=== PATIENT | male | born 1940 | race Caucasian/White ===

== ENCOUNTER → 2017-06-17 | Outpatient (CLI) | payer MEDICARE ==
[2017-06-17 09:54] LABS: Blood Urea Nitrogen 12 mg/dL (9-20)
--- NOTE | 2017-06-17 12:29 | CT ---
EXAMINATION TYPE: CT abdomen pelvis w con DATE OF EXAM: 06/17/2017 COMPARISON: NONE INDICATION: Elevated PSA DLP: 972.9 mGycm, Automated exposure control for dose reduction was used. CONTRAST: 100 mL of Isovue 300. Study performed with Oral Contrast TECHNIQUE: Axial images were obtained from above the diaphragm to the pubic rami in the axial plane a t 5 mm thick sections. Reconstructed images are reviewed on the computer in the coronal plane. FINDINGS: Limited CT sections are obtained the lung bases. The lung bases are clear. Large hiatal hernia is p resent. This is partially accentuated by an elevated diaphragm. CT ABDOMEN: Liver: Normal Spleen: Normal Pancreas: Normal Adrenal glands: The adrenal glands are normal. Gallbladder: Surgically absent Kidneys: No masses are evident. No hydronephrosis is present. No cysts are present. Delayed images were obtained through the kidneys, which remain unremarkable. Aorta: Vascular calcification is within the aorta. Inferior vena cava: Normal. CT PELVIS: Large fecal bolus at the rectum. Correlate for fecal impaction. Loops of bowel within the abdomen and pelvis are normal. There are loops of bowel which are incom pletely distended or lack oral contrast limiting their evaluation. Appendix: Normal as visualized. Urinary bladder: Normal. Genitourinary structures: Radical prostatectomy appears to been performed. There may be some residual prostate tissue on the right impinging on the inferior portion of the urinary bladder. Osseous structures: No suspicious lytic or sclerotic lesions. Facet hypertrophy and degenerative valdes ges are present within the lower lumbar spine. IMPRESSIONS: 1. Correlate for fecal impaction at the rectum. 2. Suspicious metastatic disease is not identified.
--- NOTE | 2017-06-17 14:30 | NM ---
EXAMINATION TYPE: NM bone scan whole body DATE OF EXAM: 06/17/2017 COMPARISON: 06/17/2017 CT abdomen pelvis. HISTORY: Prostate carcinoma. Delayed whole-body scanning was performed following the injection of 23.7 mCi Tc 99m MDP. Images acq uired 3.5 hours post injection. FINDINGS: There is focal radiotracer uptake that is abnormal within the right humeral head. Correlation with ra diographs is recommended. Focal radiotracer uptake is also seen within the L3 left hemivertebra, L4 vertebral body, and L1 vert ebrae on the right. Correlating with CT of the same day no focal sclerosis suspicious sclerotic lesio n is seen to correlate. Findings may be degenerative as are extensive degenerative changes of the lum bar spine. Additional focus of abnormal uptake is seen within the left distal femoral metaphysis. Uptake within the left hand likely relates to injection site. Symmetric uptake of the axial and appendicular skeleton including the sacroiliac joints, knees, wrist s, and ankles relate to degenerative arthropathy. Physiologic radiotracer excretion is noted within t he urinary bladder. IMPRESSION: 1. Intense focal radiotracer uptake within the right humeral head. Correlation with right shoulder ra diographs are recommended as this could represent neoplasm/metastasis or fracture. 2. Punctate focus of radiotracer uptake within the left distal femoral metaphysis. Correlation with r adiographs is again recommended. 3. Abnormal radiotracer uptake within the L1, L3, and L4 vertebral bodies, however no suspicious lesi on is seen in the CT of the same date at these locations and findings could be degenerative. If there is further clinical concern MR could be performed to evaluate for bone marrow replacing lesion.
== END | disposition home or self-care (01) ==
LOC: RADCTMAIN 09:12
PROVIDERS: ATTEND Urology
DX: C61 Malignant neoplasm of prostate (principal); R93.7 Abnormal findings on diagnostic imaging of other parts of musculoskeletal system; Z88.2 Allergy status to sulfonamides
CPT/HCPCS: 82565; 84520; 74177; 36415; 78306; A9503; Q9967

== ENCOUNTER → 2017-06-25 | Outpatient (CLI) | payer MEDICARE ==
--- NOTE | 2017-06-25 13:25 | XR ---
EXAMINATION TYPE: XR shoulder complete RT DATE OF EXAM: 06/25/2017 CLINICAL HISTORY: pain TECHNIQUE: Three views of the right shoulder are obtained. COMPARISON: Bone scan dated 06/17/2017 revealing intense uptake about the right humeral head FINDINGS: There is erosive change of the right humeral head with severe degenerative narrowing glenoh umeral joint space. Bony remodeling of the glenoid with bony fragmentation identified. Degenerative c hanges of the AC joint. Healed right-sided rib fractures. IMPRESSION: 1. Severe degenerative change right humeral head without underlying lesion at this time. ICD 10 NO FRACTURE, INITIAL EVALUATION
--- NOTE | 2017-06-25 13:30 | XR ---
EXAMINATION TYPE: XR femur LT DATE OF EXAM: 06/25/2017 CLINICAL HISTORY: Prostate carcinoma TECHNIQUE: Two views of the left femur are obtained. COMPARISON: Bone scan 06/17/2017 FINDINGS: There is no acute fracture or dislocation seen of the femur moderate degenerative narrowi ng about the left knee with loose bodies identified. Suprapatellar joint effusion. Extensive spur for mation. No underlying lesion seen.. The overlying soft tissue appears unremarkable. IMPRESSION: There is no acute fracture or dislocation seen of the femur. No underlying lesion noted. ICD 10 NO FRACTURE, INITIAL EVALUATION
== END | disposition home or self-care (01) ==
LOC: RADXRMAIN 11:14
PROVIDERS: ATTEND Urology
DX: C61 Malignant neoplasm of prostate (principal)

== ENCOUNTER 2018-04-25 10:31 | Day surgery (SDC) | payer MEDICARE ==
[2018-04-20 11:21] VITALS: BMI 26.1
[~2018-04-25 10:31] MED LIST: ALPRAZolam 0.25 MG TAB PO PRN; ALPRAZolam 0.5 MG TAB PO PRN; ASPIRIN 325 MG TAB PO STA; ATORVASTATIN 80 MG TAB PO STA; NITROGLYCERIN SL TABS 0.4 MG TAB SUBLINGUAL PRN; SODIUM CHLORIDE 0.9% 1,000 ML in EMPTY BAG 1 BAG IV ONE
[2018-04-25 11:03] VITALS: TEMP 98.3
[2018-04-25 11:13] LABS: Glucose,Whole Blood 140 mg/dL (75-99)
[2018-04-25] MEDS ORDERED: fentaNYL (PF) 50 MCG/ML 2 ML AMP ONE (11:49)
[2018-04-25] MEDS: BENZOCAINE SPRAY 1 CAN MUCOUS MEM ONE ×2 (12:04→12:13)
[2018-04-25] MEDS ORDERED: fentaNYL (PF) 50 MCG/ML 2 ML AMP IVP ONE (12:13)
[2018-04-25] MEDS: MIDAZOLAM 2 MG/2 ML VIAL IVP ONE ×2 (12:13→12:17)
--- NOTE | 2018-04-25 12:47 | ECHOT ---
TRANSESOPHAGEAL ECHOCARDIOGRAM DATE OF SERVICE: 04/25/2018 PERFORMING PHYSICIAN: Fei Hawthorne MD, Taxicab Driver. PROCEDURE PERFORMED: Transesophageal echocardiogram. INDICATION: This is a 77-year-old gentleman who was diagnosed recently with severe aortic stenosis and a transesophageal echocardiogram is to confirm the severity of the aortic stenosis as well as to evaluate the mitral valve. COMPLICATION: None. LEVEL OF SEDATION: Moderate with sedation length of 15 minutes. PROCEDURE DESCRIPTION: After obtaining an informed consent, the patient was brought to the cardiac shop laborer. After obtaining an informed consent, explaining the procedure, benefits, risks, complications and alternatives, the patient was brought to the transesophageal echocardiogram suite. A pulse oximetry and heart rate monitors were attached to the patient prior to the procedure. The patient's throat was sprayed using lidocaine locally. Following that, the patient was turned into left lateral position. A bite guard was placed and the patient was then sedated with the above doses of Versed and fentanyl in divided doses. Following that, the transesophageal echocardiogram probe was advanced through the bite guard into the mid esophagus where 2-D echocardiogram images as well as color Doppler images of various cardiac structures were obtained. We evaluated the interatrial septum using 2-D echocardiogram, color Doppler, and contrast study. The procedure was completed. There were no complications. FINDINGS: The left ventricular dimension and systolic function appeared to be within normal limits. The ejection fraction appeared to be in the range of 60%. The right ventricle is of normal size and function with left atrium and right atrium are mildly dilated. The left atrial appendage appeared to be free from any thrombus. The interatrial septum appeared to be intact without any evidence of shunt. The aortic valve is trileaflet valve and seems to be heavily calcified valve and evidence of severe aortic stenosis with peak gradient of 97 and mean of 55 mmHg. The mitral valve seems to be also thickened and calcified with moderate MR. There was mild tricuspid regurgitation seen. CONCLUSION: 1. Normal left ventricular dimension and systolic function with ejection fraction of 55% to 60%. 2. Mild concentric left ventricular hypertrophy. 3. Trileaflet aortic valve with evidence of aortic sclerosis and severe stenosis. The aortic valve peak gradient was 97 and mean of 55 mmHg. 4. Thickened mitral valve leaflets with evidence of moderate mitral regurgitation. 5. Mild tricuspid regurgitation and mild pulmonic insufficiency. 6. The aortic root does not seem to be dilated. 7. No evidence of pericardial effusion. 8. Intact interatrial septum without any evidence of shunt. 9. Normal left atrial appendage without any evidence of thrombus. MMODL / IJN: [id number] /
[2018-04-25] MEDS ORDERED: LIDOCAINE 1% INJ 10MG/ML (20 ML MDV) SQ ONE (12:51)
[2018-04-25] MEDS: VERAPAMIL SYRINGE (5 MG/10 ML) INTRAARTER ONE ×2 (12:54→13:16)
[2018-04-25] MEDS ORDERED: MIDAZOLAM 2 MG/2 ML VIAL IV ONE (12:57)
[2018-04-25] MEDS ORDERED: IOPAMIDOL-370 150ML BTL INJ ONE (13:15)
[2018-04-25] MEDS ORDERED: RX INFO: IV CONTRAST WAS GIVEN 1 EACH MISC MISCELLANE PRN (13:17)
[2018-04-25] MEDS ORDERED: SODIUM CHLORIDE 0.9% 1,000 ML IV SCH (13:30)
--- NOTE | 2018-04-25 14:17 | CC ---
CARDIAC CATHETERIZATION REPORT DATE OF SERVICE: 04/25/2018 PERFORMING PHYSICIAN: Fei Hawthorne MD, Line Fixer. PROCEDURE PERFORMED: Selective right and left coronary angiogram. INDICATION: This is a pleasant 77-year-old gentleman who was diagnosed recently with aortic stenosis and a heart catheterization to evaluate for coronary artery disease. APPROACH: Right radial artery. COMPLICATION: None. LEVEL OF SEDATION: Moderate with sedation length of 26 minutes. PROCEDURE DESCRIPTION: After obtaining an informed consent, the patient was brought to the cardiac pit laborer. The right radial artery was cannulated using micropuncture technique, the micropuncture wire passed easily then I placed a 6-Lithuanian sheath in the right radial artery. After that I gave the patient 2 mg of verapamil IA and 10,000 units of heparin IV. Selective right and left coronary angiogram was performed. Selective right coronary angiogram was performed using JR4 catheter and left coronary angiogram was performed using JL4 catheters. Left heart catheterization was not performed. The procedure was completed without any complication. SELECTIVE CORONARY ANGIOGRAM: 1. The right coronary artery is a large caliber vessel and is a dominant vessel. The mid RCA has a lesion appeared to be in the range of 40% to 50%. 2. The left main is angiographically normal, but is a short left main. It bifurcates into the left circumflex and left anterior descending artery. 3. The left circumflex is a large caliber vessel. It is a nondominant vessel and seems to be angiographically normal. In the midportion, gives rise into OM 1, which appeared to be a large caliber vessel and angiographically normal. 4. The LAD, the proximal LAD appeared to be normal. The LAD in the midportion appeared to be normal and gives rise into a large diagonal branch which seems to be angiographically normal. The LAD distally appeared to be normal as well. 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 POSTPROCEDURE MANAGEMENT: 1. Medical treatment. 2. Proceed with aortic valve replacement. MMODL / IJN: [id number] /
[2018-04-25 15:40] VITALS: RESP 16
[2018-04-25 17:35] VITALS: BP 123/73; PULSE 85
== END 2018-04-25 17:53 | disposition home or self-care (01) ==
LOC: CATHCVL 10:31
PROVIDERS: ATTEND Internal Medicine Interventional Cardiology
DX: I25.10 Atherosclerotic heart disease of native coronary artery without angina pectoris (principal); I08.3 Combined rheumatic disorders of mitral, aortic and tricuspid valves; I10 Essential (primary) hypertension; E11.9 Type 2 diabetes mellitus without complications; Z79.84 Long term (current) use of oral hypoglycemic drugs; Z79.82 Long term (current) use of aspirin; Z79.899 Other long term (current) drug therapy; Z88.2 Allergy status to sulfonamides; I51.7 Cardiomegaly
CPT/HCPCS: 93312; 93320; 93325; 93454; C1769 ×2; C1894; J1644; J2250; J2001; J3010; Q9967

== ENCOUNTER 2019-12-13 15:13 | Emergency (ER) | payer MEDICARE ==
[2019-12-13 15:18] VITALS: TEMP 99.3
[2019-12-13] MEDS ORDERED: Acetaminophen-Codeine 300-30mg TAB PO STA (16:22)
--- NOTE | 2019-12-13 17:21 | CT ---
EXAMINATION TYPE: CT brain chevyine wo con DATE OF EXAM: 12/13/2019 COMPARISON: None available. HISTORY: Fall, blunt head trauma. Left facial injuries. CT DLP: 1121.9 mGycm Automated exposure control for dose reduction was used. TECHNIQUE: CT scan of the head and cervical spine are performed without contrast. FINDINGS: There is no acute intracranial hemorrhage, mass effect, or midline shift identified. The ventricles and sulci are within normal limits in size. The globes are intact and the visualized sin uses are clear. Cervical spine is visualized in its entirety from C1 through upper thoracic levels and demonstrates s atisfactory alignment without evidence of acute fracture or dislocation. Prevertebral soft tissue ap pears within normal limits. The C1-C2 articulation is unremarkable. There is moderate to severe cer vical spondylosis. There is mild anterior frontal scalp hematoma. IMPRESSION: 1. There is no acute fracture or dislocation evident in the cervical spine. 2. No acute intracranial hemorrhage, mass effect, or midline shift is seen. 3. Mild frontal scalp hematoma.
--- NOTE | 2019-12-13 17:25 | CT ---
EXAMINATION TYPE: CT facial bones wo con DATE OF EXAM: 12/13/2019 COMPARISON: None available. HISTORY: Fall yesterday. Left facial injuries. Automated exposure control for dose reduction was used. TECHNIQUE: CT scan of the facial bones is performed without contrast, axial images are obtained, meg nal reformatted images are also reviewed. FINDINGS: There is no acute fracture or dislocation of the mediastinal structures. The maxilla, tyrell ble and zygomatic arches are intact. There is mild anterior facial soft tissue edema. The paranasal sinuses are adequately aerated. IMPRESSION: No acute fracture of the facial bones.
--- NOTE | 2019-12-13 17:28 | XR ---
EXAMINATION TYPE: XR pelvis AP view DATE OF EXAM: 12/13/2019 CLINICAL HISTORY: Pain status post fall. TECHNIQUE: A single AP view of the pelvis is obtained. COMPARISON: None. FINDINGS: There is no acute fracture/dislocation evident in the pelvis. The hip and sacroiliac join ts appear symmetric with mild osteoarthritis. Surgical clips overlying the pelvis are seen. IMPRESSION: There is no acute fracture or dislocation in the pelvis.
--- NOTE | 2019-12-13 17:54 | CT ---
EXAMINATION TYPE: CT knee LT wo con DATE OF EXAM: 12/13/2019 COMPARISON: None available. HISTORY: Fall yesterday. Left knee pain and swelling. CT DLP: 255.[address] images of the left knee was performed. Coronal, sagittal and 3-D reformats were generated and reviewed. Automated exposure control for dose reduction was used. FINDINGS: There is a mildly displaced vertical fracture of the patella at the lateral aspect. No evidence of di slocation. There is a large hemarthrosis with large suprapatellar joint body. There is soft tissue ed anny about the fracture site. There is moderate to severe tricompartmental osteoarthritis. There is moderate chondrocalcinosis of t he knee, which can be seen with CPPD arthropathy. There is a 2.2 x 2.2 cm cystic structure in the pop liteal fossa, most consistent with a Winston's cyst. IMPRESSION: PATELLAR FRACTURE WITH LARGE HEMARTHROSIS AND JOINT BODIES.
[2019-12-13] MEDS ORDERED: MORPHINE SULFATE 4 MG/ML SYRINGE IM STA (18:24)
--- NOTE | 2019-12-13 18:39 | ED ---
Fall HPI - General Chief Complaint: Fall Stated Complaint: fall Time Seen by Provider: 12/13/19 15:15 Source: patient, family Mode of arrival: wheelchair - History of Present Illness Initial Comments: 79-year-old male who presents to the emergency department after he sustained a fall. Patient reports that the fall happened greater than 24 hours ago. He was attempting to go to the post office. Attempted to step on a curb when he missed the curb and fell forward. Patient hit his left side of his face. Also reports to hitting his bilateral knees. Patient did not want to be evaluated yesterday. He continued to have persistent pain in his left knee that was not relieved by Tylenol and therefore he was brought into the emergency room for evaluation. Patient denies losing consciousness. Does take Plavix daily. He denies any headaches or visual changes. No neck pain. Denies any chest pain or trouble breathing. Does admit to mild pain in his left hip. Has been unable to ambulate on the left lower extremity. - Related Data Home Medications Medication Instructions Recorded Confirmed Aspirin 81 mg PO HS 04/20/18 12/14/19 Terazosin [Hytrin] 2 mg PO BID 04/20/18 12/14/19 hydrALAZINE HCL [Apresoline] 50 mg PO Q8H 04/20/18 12/14/19 Metoprolol Tartrate [Lopressor] 50 mg PO BID 12/13/19 12/14/19 Pantoprazole Sodium [Protonix] 40 mg PO DAILY 12/13/19 12/14/19 Previous Rx's Medication Instructions Recorded Hydrocodone/Acetaminophen [Harrison 1 tab PO Q4HR PRN #18 tab 12/13/19 5-325] Ferrous Sulfate [Iron (65 MG 325 mg PO DAILY #30 tab 12/18/19 Elemental)] Allergies Allergy/AdvReac Type Severity Reaction Status Date / Time Sulfa (Sulfonamide Allergy Rash/Hives Verified 12/14/19 18:28 Antibiotics) Review of Systems ROS Statement: Those systems with pertinent positive or pertinent negative responses have been documented in the HPI. ROS Other: All systems not noted in ROS Statement are negative. Past Medical History Past Medical History: Cancer, Diabetes Mellitus, Hypertension, Osteoarthritis (OA) Additional Past Medical History / Comment(s): hx. heart murmur, recent echo, SOB w/exertion, type 2 diabetic, hx. prostate cancer 2000, 37 tx. of radiation 2018 after PSA had started to rise, skin cancer History of Any Multi-Drug Resistant Organisms: None Reported Past Surgical History: Cholecystectomy, Hernia Repair, Prostate Surgery Additional Past Surgical History / Comment(s): ventral hernia repair, inguinal hernia repair, prostatectomy 2000 Past Anesthesia/Blood Transfusion Reactions: No Reported Reaction Past Psychological History: No Psychological Hx Reported Smoking Status: Never smoker Past Alcohol Use History: None Reported Past Drug Use History: None Reported - Past Family History Mother Family Medical History: No Reported History General Exam Limitations: no limitations General appearance: alert, in no apparent distress Head exam: Present: other (ecchymosis and swelling of periorbital region of left eye. ) Eye exam: Present: normal appearance, PERRL, EOMI, other (no hyphema. No entraptment. ). Absent: scleral icterus, conjunctival injection, periorbital swelling ENT exam: Present: normal exam, mucous membranes moist Neck exam: Present: normal inspection. Absent: tenderness, meningismus, lymphadenopathy Respiratory exam: Present: normal lung sounds bilaterally. Absent: respiratory distress, wheezes, rales, rhonchi, stridor Cardiovascular Exam: Present: regular rate, normal rhythm, normal heart sounds. Absent: systolic murmur, diastolic murmur, rubs, gallop, clicks GI/Abdominal exam: Present: soft, normal bowel sounds. Absent: distended, tenderness, guarding, rebound, rigid Extremities exam: Present: tenderness (left knee effusion. Overlying ecchymosis and abrasions. Abrasion to right knee. 2+ DP and PT pulses. Intact sensation ov er the medial, lateral and dorsal lower extremities. Compartments of soft. Limited ROM of left knee due to effusion and pain. ) Course Vital Signs 12/13/19 12/13/19 12/13/19 15:14 16:34 19:49 Temperature 99.3 F Pulse Rate 110 H 109 H 81 Respiratory 16 18 16 Rate Blood Pressure 144/86 159/87 168/82 O2 Sat by Pulse 97 95 99 Oximetry Medical Decision Making - Medical Decision Making Monitoring the patient is placed in room 4. A thorough history and physical exam was performed. Patient was sent over for an x-ray of his pelvis. He also has a CT of his brain, cervical spine, face and knee performed. Imaging is reviewed. It does reveal a patellar fracture with large hemarthrosis and joint bodies. I discussed the results with Dr. Taylor. States the patient may be placed in a knee immobilizer at this and follow up in the orthopedic office. Call to make an appointment. Patient was originally given a Tylenol 3 for pain control however reports that it did not help his pain. He was then given a 4 mg IM injection of morphine. Patient will be given a prescription for Harrison. He is instructed to use his walker to ambulate. He will follow-up with Dr. Orantes for further evaluation. Patient understood this. If he has any new or worsening symptoms return to the emergency room. Patient was discharged home in stable condition Disposition Clinical Impression: Fall, Left knee pain, Hemarthrosis, Patellar fracture, Facial trauma Disposition: HOME SELF-CARE Condition: Stable Instructions (If sedation given, give patient instructions): Fall Prevention for Older Adults (ED), Patellar Fracture (ED) Additional Instructions: Please call and make an appointment with Dr. Cerda in the morning. Take the pain medications as directed. Rest, ice and elevate your right knee. Return to the emergency room for any new or worsening symptoms Prescriptions: Hydrocodone/Acetaminophen [Harrison 5-325] 1 tab PO Q4HR PRN #18 tab PRN Reason: Pain Is patient prescribed a controlled substance at d/c from ED?: Yes When asked, does pt state using other controlled substances?: No If prescribed controlled substance>3 days was MAPS reviewed?: Prescribed <3 Days If opioid is for acute pain is fill amount 7 days or less?: Yes If Rx opioid, was Start Talking consent form obtained?: Yes Referrals: Ash Garcia MD [Primary Care Provider] - 1-2 days Carlos Orantes MD [STAFF PHYSICIAN] - 1-2 days Time of Disposition: 18:39
[2019-12-13 19:51] VITALS: BP 168/82; PULSE 81; RESP 16
== END 2019-12-13 19:51 | disposition home or self-care (01) ==
LOC: EC 15:13
DX: S82.002A Unspecified fracture of left patella, initial encounter for closed fracture (principal); M25.062 Hemarthrosis, left knee; S09.93XA Unspecified injury of face, initial encounter; S00.12XA Contusion of left eyelid and periocular area, initial encounter; I10 Essential (primary) hypertension; M19.90 Unspecified osteoarthritis, unspecified site; Z79.899 Other long term (current) drug therapy; Z79.82 Long term (current) use of aspirin; Z79.02 Long term (current) use of antithrombotics/antiplatelets; Z88.2 Allergy status to sulfonamides; Z85.828 Personal history of other malignant neoplasm of skin; Z85.46 Personal history of malignant neoplasm of prostate; W10.1XXA Fall (on)(from) sidewalk curb, initial encounter; Y92.89 Other specified places as the place of occurrence of the external cause
CPT/HCPCS: 99284; 96372; 72170; 72125; 70486; 70450; 73700; L1830; J2270

== ENCOUNTER 2019-12-14 15:23 | Inpatient (IN) | payer MEDICARE ==
[2019-12-14] MEDS ORDERED: NALOXONE 0.4 MG/ML 1 ML VIAL IV PRN (17:50)
[2019-12-14] MEDS ORDERED: bisacodyL 5 MG TABLET.DR PO PRN (17:50)
[2019-12-14 17:59] LABS: Glucose,Whole Blood 177 mg/dL (75-99)
--- NOTE | 2019-12-14 18:03 | P.HPIM ---
History of Present Illness H&P Date: 12/14/19 Chief Complaint: Left knee pain This is a 79-year-old male with past medical history noted below who was currently admitted to the hospital as a direct admit from orthopedic surgery office with worsening knee pain and inability to ambulate. Couple of days ago, patient had a fall while walking outside and landed on his knee. Subsequently he was having worsening knee pain and presented to the emergency room yesterday where he was evaluated in a CT of his left knee showed a patellar fracture with large hemarthrosis. Patient had a large immobilizer and was discharged home and today had a follow-up with orthopedic surgery. Patient told me that his pain is at times and tolerable and he is currently unable to get up or ambulate. His at bedside is concerned about him. He otherwise does not have any concerns. Patient's report the fall was mechanical. He denies any dizziness or lightheadedness prior to the fall. He denies any headache or vision problems. He had a large bruise around his left eye with a frontal scalp hematoma. He is taking aspirin and Plavix at home. Review of Systems Review of system: 14 points review of systems were obtained and were negative except to what were mentioned in the HPI. Past Medical History Past Medical History: Cancer, Diabetes Mellitus, Hypertension, Osteoarthritis (OA) Additional Past Medical History / Comment(s): hx. heart murmur, recent echo, SOB w/exertion, type 2 diabetic, hx. prostate cancer 2000, 37 tx. of radiation 2018 after PSA had started to rise, skin cancer, TAVR, Falls History of Any Multi-Drug Resistant Organisms: None Reported Past Surgical History: Cholecystectomy, Hernia Repair, Prostate Surgery Additional Past Surgical History / Comment(s): ventral hernia repair, inguinal hernia repair, prostatectomy 2000 TAVR Past Anesthesia/Blood Transfusion Reactions: No Reported Reaction Past Psychological History: No Psychological Hx Reported Smoking Status: Never smoker Past Alcohol Use History: None Reported Past Drug Use History: None Reported - Past Family History Mother Family Medical History: No Reported History Medications and Allergies Home Medications Medication Instructions Recorded Confirmed Type Aspirin 81 mg PO HS 04/20/18 12/13/19 History Potassium Chloride [Klor-Con 10] 10 meq PO DAILY 04/20/18 12/13/19 History Terazosin [Hytrin] 2 mg PO BID 04/20/18 12/13/19 History hydrALAZINE HCL [Apresoline] 50 mg PO Q8H 04/20/18 12/13/19 History Clopidogrel [Plavix] 75 mg PO DAILY 12/13/19 12/13/19 History Hydrochlorothiazide 12.5 mg PO DAILY 12/13/19 12/13/19 History [hydroCHLOROthiazide] Hydrocodone/Acetaminophen [[place] 1 tab PO Q4HR PRN #18 tab 12/13/19 Rx 5-325] Metoprolol Tartrate [Lopressor] 50 mg PO BID 12/13/19 12/13/19 History Pantoprazole Sodium [Protonix] 40 mg PO DAILY 12/13/19 12/13/19 History Shaklee Iron Plus C Complex 1 tab PO Q48H 12/13/19 12/13/19 History Shaklee Iron Plus C Complex 2 tab PO Q48H 12/13/19 12/13/19 History metFORMIN HCL ER [Glucophage Xr] 1,000 mg PO HS 12/13/19 12/13/19 History Allergies Allergy/AdvReac Type Severity Reaction Status Date / Time Sulfa (Sulfonamide Allergy Rash/Hives Verified 12/13/19 16:51 Antibiotics) Physical Exam Vitals: Intake and Output 12/14/19 12/14/19 12/14/19 06:59 14:59 22:59 Other: Weight 72.575 kg General: The patient is awake and alert, in no distress. Patient had a frontal scalp hematoma Eye: there is periorbital bruising surrounding the left eye. Neck: The neck is supple, there is no JVD. Cardiovascular: Normal S1-S2, no S3-S4, no murmurs. Respiratory: Lungs clear to auscultation bilaterally Gastrointestinal: Abdomen is soft, nontender Musculoskeletal: There is no pedal edema. Neurological:. Speech is normal. Skin: Skin is warm and dry Thrombosis Risk Factor Assmnt - Choose All That Apply Each Risk Factor Represents 2 Points: Patient confined to bed Each Risk Factor Represents 3 Points: Age 75 years or older Thrombosis Risk Factor Assessment Total Risk Factor Score: 5 Thrombosis Risk Factor Assessment Level: High Risk Assessment and Plan Assessment: This is a 79-year-old male who was directly admitted to the hospital from the orthopedic office with worsening knee pain and inability to ambulate. Glucose as well as his medical problems. 1. Left patellar fracture with large hemarthrosis, currently large knee immob ilizer. Orthopedic surgery consult for further evaluation. 2. Essential hypertension, blood pressure not well controlled. Resume home medication and continue to monitor closely. 3. Physical debility with gait imbalance: PT/OT consulted. Patient may benefit from rehab 4. Recurrent falls as reported per with most recent one couple of days ago. Extensive imaging in the ER done yesterday was reviewed by me. Questionable hemarthrosis involving the left knee, left frontal scalp hematoma, and left periorbital bruising 5. Type 2 diabetes: Hold metformin and continue sliding scale insulin 6. History of aortic valve stenosis status post TAVR last year 7. DVT prophylaxis with SCD Today, I had a prolonged conversation with the patient and his regarding risk and benefits of antiplatelet. His informs me that patient was taken off of Plavix by his production repairer that his PCP put him back on Plavix as she suspected that he may have it TIA based on clinical suspicion. Patient had a left heart catheterization showing nonobstructive coronary artery disease not too long ago. He denies having any cardiac stent in the past. I advised to discontinue Plavix permanently and hold aspirin for the next couple of days. We will also obtain lab work including CBC and BMP.
[2019-12-14] MEDS: HYDROcodone/APAP 5-325MG 1 EACH TAB PO PRN (18:24)
[2019-12-14 19:35] LABS: Basophils % (A) 0 %; Eosinophils % (A) 0 %; HCT 31.7 % (39.0-53.0); HGB 10.8 gm/dL (13.0-17.5); Lymphocytes # (A) 0.4 k/uL (1.0-4.8); Lymphocytes % (A) 5 %; MCH 29.3 pg (25.0-35.0); MCHC 33.9 g/dL (31.0-37.0); MCV 86.6 fL (80.0-100.0); Monocytes # (A) 0.9 k/uL (0-1.0); Monocytes % (A) 13 %; Neutrophils # (A) 5.7 k/uL (1.3-7.7); Neutrophils % (A) 79 %; Platelet Count 182 k/uL (150-450); RBC 3.67 m/uL (4.30-5.90); RDW 13.4 % (11.5-15.5); WBC 7.3 k/uL (3.8-10.6)
[2019-12-14 19:38] LABS: African American GFR (CKD) >90 (>60 ml/min/1.73 sqM); Anion Gap 12 mmol/L; Blood Urea Nitrogen 19 mg/dL (9-20); Calcium 9.2 mg/dL (8.4-10.2); Carbon Dioxide 23 mmol/L (22-30); Chloride 94 mmol/L (98-107); Glucose 158 mg/dL (74-99); Non-African American GFR(CKD) 86 (>60 ml/min/1.73 sqM); Sodium 129 mmol/L (137-145)
[2019-12-14 20:00] LABS: Glucose,Whole Blood 192 mg/dL (75-99)
[2019-12-14] MEDS: INSULIN ASPART (NovoLOG) 100 UNIT/ML VIAL SQ SCH (20:18)
[2019-12-15] MEDS: HYDROcodone/APAP 5-325MG 1 EACH TAB PO PRN ×3 (03:28→20:17)
[2019-12-15 07:18] LABS: Glucose,Whole Blood 164 mg/dL (75-99)
[2019-12-15] MEDS: INSULIN ASPART (NovoLOG) 100 UNIT/ML VIAL SQ SCH ×4 (07:32→20:16)
[2019-12-15] MEDS: METOPROLOL TARTRATE 50 MG TAB PO SCH ×2 (09:01→20:16)
[2019-12-15] MEDS: PANTOPRAZOLE 40 MG TABLET PO SCH (09:01)
[2019-12-15] MEDS: DOXAZOSIN 2 MG TAB PO SCH ×2 (09:02→20:16)
[2019-12-15] MEDS: SODIUM CHLORIDE 0.9% 1,000 ML IV SCH (09:02)
[2019-12-15] MEDS: hydrALAZINE HCL 50 MG TAB PO SCH ×3 (09:02→23:56)
[2019-12-15 12:10] LABS: Glucose,Whole Blood 191 mg/dL (75-99)
[2019-12-15] MEDS ORDERED: LIDOCAINE 2% (PF) 20 MG/ML 5 ML VIAL ONE (13:17)
--- NOTE | 2019-12-15 13:27 | P.PN ---
Subjective Progress Note Date: 12/15/19 Patient is doing well today. He does not have any complaint this morning. Objective - Vital Signs Vital signs: Vital Signs Temp 98.2 F 12/15/19 12:12 Pulse 93 12/15/19 12:12 Resp 16 12/15/19 12:12 BP 137/75 12/15/19 12:12 Pulse Ox 96 12/15/19 12:12 Intake & Output 12/14/19 12/15/19 12/15/19 18:59 06:59 18:59 Intake Total 890 Balance 890 Weight 72.575 kg Intake: Oral 890 Other: Voiding Method Urinal Urinal Diaper Diaper Incontinent Incontinent # Voids 2 - Exam General: The patient is awake and alert, in no distress Eye: there is left periorbital bruising Neck: The neck is supple, there is no JVD. Cardiovascular: Normal S1-S2, no S3-S4, no murmurs. Respiratory: Lungs clear to auscultation bilaterally Gastrointestinal: Abdomen is soft, nontender Musculoskeletal: There is no pedal edema. Neurological:. Speech is normal. Skin: Skin is warm and dry - Labs CBC & Chem 7: 12/14/19 18:40 12/14/19 18:40 Labs: Abnormal Lab Results - Last 24 Hours (Table) 12/14/19 12/14/19 12/14/19 Range/Units 17:47 18:40 18:40 RBC 3.67 L (4.30-5.90) m/uL Hgb 10.8 L (13.0-17.5) gm/dL Hct 31.7 L (39.0-53.0) % Lymphocytes # 0.4 L (1.0-4.8) k/uL Sodium 129 L (137-145) mmol/L Chloride 94 L (98-107) mmol/L Glucose 158 H (74-99) mg/dL POC Glucose (mg/dL) 177 H (75-99) mg/dL 12/14/19 12/15/19 12/15/19 Range/Units 19:59 07:16 12:08 RBC (4.30-5.90) m/uL Hgb (13.0-17.5) gm/dL Hct (39.0-53.0) % Lymphocytes # (1.0-4.8) k/uL Sodium (137-145) mmol/L Chloride (98-107) mmol/L Glucose (74-99) mg/dL POC Glucose (mg/dL) 192 H 164 H 191 H (75-99) mg/dL Assessment and Plan Assessment: This is a 79-year-old male who was directly admitted to the hospital from the orthopedic office with worsening knee pain and inability to ambulate. Glucose as well as his medical problems. 1. Left patellar fracture with large hemarthrosis, currently large knee immobilizer. Orthopedic surgery consulted for further evaluation. 2. Essential hypertension, blood pressure well controlled. 3. Physical debility with gait imbalance: PT/OT consulted. Patient may benefit from rehab 4. Recurrent falls as reported per with most recent one couple of days ago. Extensive imaging in the ER was reviewed by me. Questionable hemarthrosis involving the left knee, left frontal scalp hematoma, and left periorbital bruising 5. Type 2 diabetes: Hold metformin and continue sliding scale insulin 6. History of aortic valve stenosis status post TAVR last year 7. DVT prophylaxis with SCD On presentation, I had a prolonged conversation with the patient and his r egarding risk and benefits of antiplatelet. His informs me that patient was taken off of Plavix by his procurement inspector that his PCP put him back on Plavix as she suspected that he may have it TIA based on clinical suspicion. Patient had a left heart catheterization showing nonobstructive coronary artery disease not too long ago. He denies having any cardiac stent in the past. I advised to discontinue Plavix permanently and hold aspirin for the next couple of days.
--- NOTE | 2019-12-15 15:23 | P.CNOR ---
History of Present Illness - [facility] Consult date: 12/15/19 Consult reason: fracture (Left patella fracture) History of present illness: This is an 79-year-old gentleman who was seen in our office on 12/14/2019 after falling and sustaining injury to his left knee. He apparently has had multiple falls recently. His most recent fall caused injury to his face, left orbit and left knee. He was found to have a left patella fracture. He was unable to ambulate in the office and family stated that they are unable to care for him at home with his significant disability since the fall. He is admitted to internal medicine we are consulted for orthopedic follow-up and evaluation. Past Medical History Past Medical History: Cancer, Diabetes Mellitus, Hypertension, Osteoarthritis (OA) Additional Past Medical History / Comment(s): hx. heart murmur, recent echo, SOB w/exertion, type 2 diabetic, hx. prostate cancer 2000, 37 tx. of radiation 2018 after PSA had started to rise, skin cancer, TAVR, Falls History of Any Multi-Drug Resistant Organisms: None Reported Past Surgical History: Cholecystectomy, Hernia Repair, Prostate Surgery Additional Past Surgical History / Comment(s): ventral hernia repair, inguinal hernia repair, prostatectomy 2000 TAVR Past Anesthesia/Blood Transfusion Reactions: No Reported Reaction Past Psychological History: No Psychological Hx Reported Smoking Status: Never smoker Past Alcohol Use History: None Reported Past Drug Use History: None Reported - Past Family History Mother Family Medical History: No Reported History Medications and Allergies Home Medications Medication Instructions Recorded Confirmed Type Aspirin 81 mg PO HS 04/20/18 12/14/19 History Potassium Chloride [Klor-Con 10] 10 meq PO DAILY 04/20/18 12/14/19 History Terazosin [Hytrin] 2 mg PO BID 04/20/18 12/14/19 History hydrALAZINE HCL [Apresoline] 50 mg PO Q8H 04/20/18 12/14/19 History Clopidogrel [Plavix] 75 mg PO DAILY 12/13/19 12/14/19 History Hydrochlorothiazide 12.5 mg PO DAILY 12/13/19 12/14/19 History [hydroCHLOROthiazide] Hydrocodone/Acetaminophen [[place] 1 tab PO Q4HR PRN #18 tab 12/13/19 12/14/19 Rx 5-325] Metoprolol Tartrate [Lopressor] 50 mg PO BID 12/13/19 12/14/19 History Pantoprazole Sodium [Protonix] 40 mg PO DAILY 12/13/19 12/14/19 History Shaklee Iron Plus C Complex 1 tab PO Q48H 12/13/19 12/14/19 History [place] Iron Plus C Complex 2 tab PO Q48H 12/13/19 12/14/19 History Allergies Allergy/AdvReac Type Severity Reaction Status Date / Time Sulfa (Sulfonamide Allergy Rash/Hives Verified 12/14/19 18:28 Antibiotics) Physical Examination This is a pleasant 79-year-old male in no acute distress. He is alert and oriented at this time. His is present at bedside. Exam of the head neck reveal significant ecchymosis to the left side of his face and orbit. There are no open wounds or active drainage noted. Exam of the cervical spine reveals fairly good cervical spine motion without difficulty or pain. No pain with palpation about the cervical spine or parasp inal musculature. Exam of the upper extremities reveals no obvious deformities. He has fairly good shoulder, elbow, wrist and finger motion bilaterally. Neurovascular status to the upper extremities is intact. Exam of the lower extremities reveals a knee immobilizer in place to the left knee. He has full foot and ankle motion without difficulty or pain. Exam of the right knee reveals a 3+ effusion. No erythema or ecchymosis. He has difficulty flexing the knee independently. He is able to raise leg straight off the bed without pain. No hip pain with logroll. Neurovascular status to the lower extremities is intact. Results X-rays and CT of the left knee taken at [facility] on 12/13/2019 reveal a minimally displaced longitudinal patellar fracture. No other fractures identified. - Labs Labs: Abnormal Lab Results - Last 24 Hours (Table) 12/14/19 12/14/19 12/14/19 Range/Units 17:47 18:40 18:40 RBC 3.67 L (4.30-5.90) m/uL Hgb 10.8 L (13.0-17.5) gm/dL Hct 31.7 L (39.0-53.0) % Lymphocytes # 0.4 L (1.0-4.8) k/uL Sodium 129 L (137-145) mmol/L Chloride 94 L (98-107) mmol/L Glucose 158 H (74-99) mg/dL POC Glucose (mg/dL) 177 H (75-99) mg/dL 12/14/19 12/15/19 12/15/19 Range/Units 19:59 07:16 12:08 RBC (4.30-5.90) m/uL Hgb (13.0-17.5) gm/dL Hct (39.0-53.0) % Lymphocytes # (1.0-4.8) k/uL Sodium (137-145) mmol/L Chloride (98-107) mmol/L Glucose (74-99) mg/dL POC Glucose (mg/dL) 192 H 164 H 191 H (75-99) mg/dL H & H 12/14/19 Range/Units 18:40 Hgb 10.8 L (13.0-17.5) gm/dL Hct 31.7 L (39.0-53.0) % Result Diagrams: 12/14/19 18:40 12/14/19 18:40 Assessment and Plan (1) Right knee pain Current Visit: Yes Status: Acute Code(s): M25.561 - PAIN IN RIGHT KNEE SNOMED Code(s): 01523186 (2) Effusion, right knee Current Visit: Yes Status: Acute Code(s): M25.461 - EFFUSION, RIGHT KNEE SNOMED Code(s): 692250095607623 (3) Facial trauma Current Visit: No Status: Acute Code(s): S09.93XA - UNSPECIFIED INJURY OF FACE, INITIAL ENCOUNTER SNOMED Code(s): 887451116 (4) Fall Current Visit: No Status: Acute Code(s): W19.XXXA - UNSPECIFIED FALL, INITIAL ENCOUNTER SNOMED Code(s): 0457216 (5) Left knee pain Current Visit: No Status: Acute Code(s): M25.562 - PAIN IN LEFT KNEE SNOMED Code(s): 02184788 (6) Patellar fracture Current Visit: No Status: Acute Code(s): S82.009A - UNSP FRACTURE OF UNSP PATELLA, INIT FOR CLOS FX SNOMED Code(s): 27298741 Plan: The clinical findings are discussed with the patient. He is admitted to internal medicine. Today I aspirated the right knee at bedside. Procedure: Using sterile technique the right knee is aspirated obtaining approximately 90 mL of cloudy yellow joint fluid. The patient tolerated the aspiration well. Fluid was sent for culture, cell count and crystal identification. He is to continue knee immobilizer to the left knee. He is to be evaluated by physical therapy for possible rehab placement. He may be toe-touch weightbearing to the left lower extremity with walker.
[2019-12-15 15:25] LABS: Appearance,BF Cloudy; Nucleated Cells, Body Fluid 30000 /uL; RBC, Body Fluid 1650 /uL
--- NOTE | 2019-12-15 15:51 | XR ---
EXAMINATION TYPE: XR knee limited RT DATE OF EXAM: 12/15/2019 COMPARISON: NONE HISTORY: 79-year-old male right knee pain after fall TECHNIQUE: 2 views FINDINGS: There is calcification/ossification either within the quadriceps tendon or within the supra patellar joint synovium. Severe degenerative change patellofemoral compartment and at least moderate, probably moderate to severe in the medial compartment. There is bulging along the anterior suprapate llar region. Unclear if this relates to an underlying joint effusion. No displaced fracture seen. IMPRESSION: 1. Calcification/ossification either within the quadriceps tendon or within the suprapatellar joint s ynovium. There is anterior bulging along the suprapatellar region. Unclear if this relates to an unde rlying joint effusion or injury to the quadriceps tendon. Correlation to ensure integrity of the exte nsor mechanism is recommended. 2. Severe patellofemoral compartmental osteoarthrosis and moderate to severe in the medial compartmen t.
[2019-12-15 15:55] LABS: Polynuclear WBC,Body Fluid 100 %; Total Cells Counted,Body Fluid 100
[2019-12-15 17:23] LABS: Glucose,Whole Blood 187 mg/dL (75-99)
[2019-12-15 20:09] LABS: Glucose,Whole Blood 182 mg/dL (75-99)
[2019-12-15] MEDS: MELATONIN 3 MG TABLET PO PRN (20:16)
[2019-12-16] MEDS: HYDROcodone/APAP 5-325MG 1 EACH TAB PO PRN ×3 (05:53→17:26)
[2019-12-16] MEDS: SODIUM CHLORIDE 0.9% 1,000 ML IV SCH (05:54)
[2019-12-16 06:13] LABS: Basophils % (A) 0 %; Eosinophils % (A) 0 %; HCT 30.3 % (39.0-53.0); HGB 10.1 gm/dL (13.0-17.5); Lymphocytes # (A) 0.4 k/uL (1.0-4.8); Lymphocytes % (A) 6 %; MCHC 33.2 g/dL (31.0-37.0); MCV 87.3 fL (80.0-100.0); Mean Platelet Volume 7.2; Monocytes # (A) 0.5 k/uL (0-1.0); Monocytes % (A) 8 %; Neutrophils # (A) 5.2 k/uL (1.3-7.7); Neutrophils % (A) 84 %; Platelet Count 174 k/uL (150-450); RBC 3.47 m/uL (4.30-5.90); RDW 13.4 % (11.5-15.5); WBC 6.2 k/uL (3.8-10.6)
[2019-12-16 07:24] LABS: Glucose,Whole Blood 163 mg/dL (75-99)
[2019-12-16] MEDS: hydrALAZINE HCL 50 MG TAB PO SCH ×2 (07:52→17:27)
[2019-12-16] MEDS: INSULIN ASPART (NovoLOG) 100 UNIT/ML VIAL SQ SCH ×4 (07:52→20:30)
[2019-12-16] MEDS: PANTOPRAZOLE 40 MG TABLET PO SCH (07:52)
[2019-12-16] MEDS: METOPROLOL TARTRATE 50 MG TAB PO SCH ×2 (07:52→20:30)
[2019-12-16] MEDS: DOXAZOSIN 2 MG TAB PO SCH ×2 (07:53→20:30)
[2019-12-16 09:23] LABS: African American GFR (CKD) 102.6 (60.0-200.0); Anion Gap 7.3 mmol/L (4.00-12.00); BUN/Creat Ratio 24.29 Ratio (12.00-20.00); Calcium 8.7 mg/dL (8.7-10.3); Carbon Dioxide 26.7 mmol/L (21.6-31.8); Non-African American GFR(CKD) 88.5 (60.0-200.0); Potassium 3.5 mmol/L (3.5-5.5)
--- NOTE | 2019-12-16 09:28 | P.PN ---
Subjective Progress Note Date: 12/16/19 Principal diagnosis: Left patella fracture. Right knee effusion. Degenerative arthritis bilateral knees. Multiple medical comorbidities. This is an 79-year-old gentleman who was seen in our office on 12/14/2019 after falling and sustaining injury to his left knee. He apparently has had multiple falls recently. His most recent fall caused injury to his face, left orbit and left knee. He was found to have a left patella fracture. He was unable to ambulate in the office and family stated that they are unable to care for him at home with his significant disability since the fall. He is admitted to internal medicine we are consulted for orthopedic follow-up and evaluation. He was seen on consultation yesterday in the right knee was aspirated, obtaining approximately 90 mL of cloudy yellow joint fluid. Cell count shows 30,000 nucleated cells. Crystal identification is positive for calcium oxalate crystals (pseudogout). Vitals and labs are stable today. He has no new complaints or concerns. Objective - Vital Signs Vital signs: Vital Signs Temp 98.1 F 12/16/19 04:43 Pulse 89 12/16/19 04:43 Resp 16 12/16/19 04:43 BP 152/83 12/16/19 04:43 Pulse Ox 95 12/16/19 04:43 Intake & Output 12/15/19 12/16/19 12/16/19 18:59 06:59 18:59 Intake Total 300 1490 Output Total 300 Balance 0 1490 Intake: Intake, IV Titration 300 600 Amount Sodium Chloride 0.9% 1, 300 600 000 ml @ 50 mls/hr IV . Q20H [facility] Rx#:[id number] Oral 890 Output: Urine 300 Other: Voiding Method Urinal Urinal Diaper Diaper Incontinent Incontinent # Voids 2 # Bowel Movements 1 - Exam This is an 79-year-old male in no acute distress. He is alert and oriented 3. Exam of the head neck reveal continued ecchymosis about the forehead and left orbit. No open wounds noted. Exam of the lower extremities reveals knee immobilizer in place to the left knee. Full foot and ankle motion without difficulty or pain. Exam of the right knee reveals that the swelling is improved since the aspiration. There is no erythema or ecchymosis. He has slightly improved range of motion of the knee. Neurovascular status to the lower extremities is intact. - Labs CBC & Chem 7: 10/24/20 05:43 12/16/19 05:43 Labs: Abnormal Lab Results - Last 24 Hours (Table) 12/15/19 12/15/19 12/15/19 Range/Units 12:08 13:40 17:20 RBC (4.30-5.90) m/uL Hgb (13.0-17.5) gm/dL Hct (39.0-53.0) % Lymphocytes # (1.0-4.8) k/uL Sodium (135-145) mmol/L BUN/Creatinine Ratio (12.00-20.00) Ratio Glucose (70-110) mg/dL POC Glucose (mg/dL) 191 H 187 H (75-99) mg/dL Synovial Crystals Seen H (None Seen) 12/15/19 12/16/19 12/16/19 Range/Units 20:07 05:43 05:43 RBC 3.47 L (4.30-5.90) m/uL Hgb 10.1 L (13.0-17.5) gm/dL Hct 30.3 L (39.0-53.0) % Lymphocytes # 0.4 L (1.0-4.8) k/uL Sodium 132 L (135-145) mmol/L BUN/Creatinine Ratio 24.29 H (12.00-20.00) Ratio Glucose 159 H (70-110) mg/dL POC Glucose (mg/dL) 182 H (75-99) mg/dL Synovial Crystals (None Seen) 12/16/19 Range/Units 07:22 RBC (4.30-5.90) m/uL Hgb (13.0-17.5) gm/dL Hct (39.0-53.0) % Lymphocytes # (1.0-4.8) k/uL Sodium (135-145) mmol/L BUN/Creatinine Ratio (12.00-20.00) Ratio Glucose (70-110) mg/dL POC Glucose (mg/dL) 163 H (75-99) mg/dL Synovial Crystals (None Seen) Microbiology - Last 24 Hours (Table) 12/15/19 13:40 Gram Stain - Preliminary Aspirate Body Fluid Culture - Preliminary Assessment and Plan (1) Right knee pain Current Visit: Yes Status: Acute Code(s): M25.561 - PAIN IN RIGHT KNEE SNOMED Code(s): 86064621 (2) Effusion, right knee Current Visit: Yes Status: Acute Code(s): M25.461 - EFFUSION, RIGHT KNEE SNOMED Code(s): 452309464003850 (3) Facial trauma Current Visit: No Status: Acute Code(s): S09.93XA - UNSPECIFIED INJURY OF FACE, INITIAL ENCOUNTER SNOMED Code(s): 284507316 (4) Fall Current Visit: No Status: Acute Code(s): W19.XXXA - UNSPECIFIED FALL, INITIAL ENCOUNTER SNOMED Code(s): 9681979 (5) Left knee pain Current Visit: No Status: Acute Code(s): M25.562 - PAIN IN LEFT KNEE SNOMED Code(s): 47799038 (6) Patellar fracture Current Visit: No Status: Acute Code(s): S82.009A - UNSP FRACTURE OF UNSP PATELLA, INIT FOR CLOS FX SNOMED Code(s): 36802381 (7) Pseudogout of right knee Current Visit: Yes Status: Acute Code(s): M11.261 - OTHER CHONDROCALCINOSIS, RIGHT KNEE SNOMED Code(s): 383839541 Plan: The clinical findings are discussed with the patient. It is recommended he be on some sort of anti-inflammatory for the pseudogout. I will leave this to internal medicine's discretion with his multiple medical issues. He is to continue knee immobilizer to the left knee. He is to continue with physical therapy for possible rehab placement. He may be toe-touch weightbearing to the left lower extremity with walker. He may bear weight as tolerated on the right leg.
[2019-12-16 11:58] LABS: Glucose,Whole Blood 222 mg/dL (75-99)
[2019-12-16 17:20] LABS: Glucose,Whole Blood 152 mg/dL (75-99)
--- NOTE | 2019-12-16 17:42 | P.PN ---
Subjective Progress Note Date: 12/16/19 Patient is doing well today. He does not have any complaint this morning. Objective - Vital Signs Vital signs: Vital Signs Temp 98.5 F 12/16/19 13:00 Pulse 82 12/16/19 13:00 Resp 16 12/16/19 13:00 BP 131/76 12/16/19 13:00 Pulse Ox 97 12/16/19 13:00 Intake & Output 12/15/19 12/16/19 12/16/19 18:59 06:59 18:59 Intake Total 300 1490 Output Total 300 Balance 0 1490 Intake: Intake, IV Titration 300 600 Amount Sodium Chloride 0.9% 1, 300 600 000 ml @ 50 mls/hr IV . Q20H [facility] Rx#:[id number] Oral 890 Output: Urine 300 Other: Voiding Method Urinal Urinal Urinal Diaper Diaper Diaper Incontinent Incontinent Incontinent # Voids 2 3 # Bowel Movements 1 3 - Exam General: The patient is awake and alert, in no distress Eye: there is left periorbital bruising Neck: The neck is supple, there is no JVD. Cardiovascular: Normal S1-S2, no S3-S4, no murmurs. Respiratory: Lungs clear to auscultation bilaterally Gastrointestinal: Abdomen is soft, nontender Musculoskeletal: There is no pedal edema. Neurological:. Speech is normal. Skin: Skin is warm and dry - Labs CBC & Chem 7: 12/16/19 05:43 12/16/19 05:43 Labs: Abnormal Lab Results - Last 24 Hours (Table) 12/15/19 12/15/19 12/16/19 Range/Units 13:40 20:07 05:43 RBC 3.47 L (4.30-5.90) m/uL Hgb 10.1 L (13.0-17.5) gm/dL Hct 30.3 L (39.0-53.0) % Lymphocytes # 0.4 L (1.0-4.8) k/uL Sodium (135-145) mmol/L BUN/Creatinine Ratio (12.00-20.00) Ratio Glucose (70-110) mg/dL POC Glucose (mg/dL) 182 H (75-99) mg/dL Synovial Crystals Seen H (None Seen) 12/16/19 12/16/19 12/16/19 Range/Units 05:43 07:22 11:56 RBC (4.30-5.90) m/uL Hgb (13.0-17.5) gm/dL Hct (39.0-53.0) % Lymphocytes # (1.0-4.8) k/uL Sodium 132 L (135-145) mmol/L BUN/Creatinine Ratio 24.29 H (12.00-20.00) Ratio Glucose 159 H (70-110) mg/dL POC Glucose (mg/dL) 163 H 222 H (75-99) mg/dL Synovial Crystals (None Seen) 12/16/19 Range/Units 17:19 RBC (4.30-5.90) m/uL Hgb (13.0-17.5) gm/dL Hct (39.0-53.0) % Lymphocytes # (1.0-4.8) k/uL Sodium (135-145) mmol/L BUN/Creatinine Ratio (12.00-20.00) Ratio Glucose (70-110) mg/dL POC Glucose (mg/dL) 152 H (75-99) mg/dL Synovial Crystals (None Seen) Microbiology - Last 24 Hours (Table) 12/15/19 13:40 Gram Stain - Preliminary Aspirate Body Fluid Culture - Preliminary Assessment and Plan Assessment: This is a 79-year-old male who was directly admitted to the hospital from the orthopedic office with worsening knee pain and inability to ambulate. Glucose as well as his medical problems. 1. Left patellar fracture with large hemarthrosis, currently large knee immobilizer. Orthopedic surgery consulted. Status post arthrocentesis showing evidence of pseudogout crystals. Patient denies any history of joint swelling or pain. This may be incidental findings. We will finish short course of prednisone for 3-5 days. 2. Essential hypertension, blood pressure well controlled. 3. Physical debility with gait imbalance: PT/OT consulted. Patient may benefit from rehab 4. Recurrent falls as reported per with most recent one couple of days ago. Extensive imaging in the ER was reviewed by me. Questionable hemarthrosis involving the left knee, left frontal scalp hematoma, and left periorbital bruising 5. Type 2 diabetes: Hold metformin and continue sliding scale insulin 6. History of aortic valve stenosis status post TAVR last year 7. DVT prophylaxis with SCD On presentation, I had a prolonged conversation with the patient and his regarding risk and benefits of antiplatelet. His informs me that patient was taken off of Plavix by his clinical science consultant that his PCP put him back on Plavix as she suspected that he may have it TIA based on clinical suspicion. Patient had a left heart catheterization showing nonobstructive coronary artery disease not too long ago. He denies having any cardiac stent in the past. I advised to discontinue Plavix permanently and hold aspirin for the next couple of days.
[2019-12-16 19:47] LABS: Glucose,Whole Blood 201 mg/dL (75-99)
[2019-12-17] MEDS: hydrALAZINE HCL 50 MG TAB PO SCH ×4 (00:29→23:45)
[2019-12-17 06:53] LABS: Basophils % (A) 0 %; Eosinophils # (A) 0.1 k/uL (0-0.7); Eosinophils % (A) 1 %; HCT 32.2 % (39.0-53.0); HGB 10.2 gm/dL (13.0-17.5); Lymphocytes # (A) 0.3 k/uL (1.0-4.8); Lymphocytes % (A) 5 %; MCH 28.9 pg (25.0-35.0); MCHC 31.8 g/dL (31.0-37.0); MCV 90.7 fL (80.0-100.0); Mean Platelet Volume 6.7; Monocytes # (A) 0.4 k/uL (0-1.0); Monocytes % (A) 7 %; Neutrophils % (A) 85 %; Platelet Count 231 k/uL (150-450); RBC 3.54 m/uL (4.30-5.90); RDW 13.3 % (11.5-15.5); WBC 5.9 k/uL (3.8-10.6)
[2019-12-17 07:18] LABS: Glucose,Whole Blood 165 mg/dL (75-99)
[2019-12-17] MEDS: predniSONE 20 MG TAB PO SCH (08:39)
[2019-12-17] MEDS: INSULIN ASPART (NovoLOG) 100 UNIT/ML VIAL SQ SCH ×4 (08:39→20:57)
[2019-12-17] MEDS: METOPROLOL TARTRATE 50 MG TAB PO SCH ×2 (08:40→20:56)
[2019-12-17] MEDS: HYDROcodone/APAP 5-325MG 1 EACH TAB PO PRN (08:40)
[2019-12-17] MEDS: PANTOPRAZOLE 40 MG TABLET PO SCH (08:40)
[2019-12-17] MEDS: DOXAZOSIN 2 MG TAB PO SCH ×2 (08:41→20:56)
[2019-12-17 09:30] LABS: African American GFR (CKD) 102.6 (60.0-200.0); Anion Gap 8.7 mmol/L (4.00-12.00); BUN/Creat Ratio 25.71 Ratio (12.00-20.00); Calcium 8.7 mg/dL (8.7-10.3); Carbon Dioxide 25.3 mmol/L (21.6-31.8); Non-African American GFR(CKD) 88.5 (60.0-200.0); Potassium 3.7 mmol/L (3.5-5.5)
[2019-12-17 11:42] LABS: Glucose,Whole Blood 205 mg/dL (75-99)
[2019-12-17 11:57] LABS: Hemoglobin A1C 6.8 % (4.0-6.0)
--- NOTE | 2019-12-17 12:26 | P.PN ---
Subjective Progress Note Date: 12/17/19 This patient is an 79- year old male that was evaluated in our office on 12/14/19 after sustaining injury to his left knee. He was found to have a left patella fracture. Patient was unable to ambulate in the office, therefore he was admitted to [facility] under the care of internal medicine, with a consult placed to orthopedic surgery for follow-up and evaluation. Patient's right knee was aspirated on 12/15/19, and crystal identification was positive for pseudogout. Patient was therefore placed on prednisone 60mg QD per internal medicine. Patient is seen and examined bedside this morning. He states he overall feels well. He believes the pain in his bilateral knees has improved significantly since admission. Patient states he was working with physical therapy yesterday. He keeps his knee immobilizer intact of the left knee. Patient denies any complaints or concerns today. Patient denies chest pain, shortness of breath, nausea, vomiting, fevers, chills. Lab stable. Patient is mildly tachycardic, otherwise vital signs stable. Objective - Vital Signs Vital signs: Vital Signs Temp 97.9 F 12/17/19 05:00 Pulse 106 H 12/17/19 05:00 Resp 16 12/17/19 05:00 BP 116/76 12/17/19 05:00 Pulse Ox 98 12/17/19 05:00 Intake & Output 12/16/19 12/17/19 12/17/19 18:59 06:59 18:59 Intake Total 1780 Output Total 400 Balance 1380 Intake: Intake, IV Titration 600 Amount Sodium Chloride 0.9% 1, 600 000 ml @ 50 mls/hr IV . Q20H [facility] Rx#:[id number] Oral 1180 Output: Urine 400 Other: Voiding Method Urinal Urinal Urinal Diaper Diaper Diaper Incontinent Incontinent Incontinent # Voids 3 # Bowel Movements 3 1 - Exam On examination, the patient is sitting up in bed in no apparent distress. He is alert and orientated x3. There is periorbital ecchymosis of the left orbit. On inspection of the right knee, there is a mild knee effusion. No erythema, warmth. No pain on palpation of the knee. No pain with PROM of the knee, hip. No pain with log rolling. Patient is able to perform a straight leg raise. Motor and sensory function intact of the right lower extremity. The right lower extremity is warm and well perfused with brisk capillary refill distally. Dorsalis pedis pulse +2. On inspection of the left knee, knee immobilizer and neoprene compression sleeve in place. There is a moderate knee effusion. No erythema, warmth. Ecchymosis of the anterior knee. No open wounds or lacerations. Mild pain with palpation of the anterior knee. Non-tender to palpation of the thigh, lowre leg, ankle, foot. Patient is able to perform a straight leg raise without issue. No pain with log rolling. Motor and sensory function intact of the left lower extremity. The left lower extremity is warm and well perfused with brisk capillary refill distally. Dorsalis pedis pulse +2. Calves are soft and nontender to palpation bilaterally. No signs of DVT. - Labs CBC & Chem 7: 12/17/19 06:24 12/17/19 06:24 Labs: Abnormal Lab Results - Last 24 Hours (Table) 12/16/19 12/16/19 12/17/19 Range/Units 17:19 19:46 06:24 RBC 3.54 L (4.30-5.90) m/uL Hgb 10.2 L (13.0-17.5) gm/dL Hct 32.2 L (39.0-53.0) % Lymphocytes # 0.3 L (1.0-4.8) k/uL Sodium (135-145) mmol/L BUN/Creatinine Ratio (12.00-20.00) Ratio Glucose (70-110) mg/dL POC Glucose (mg/dL) 152 H 201 H (75-99) mg/dL Hemoglobin A1c (4.0-6.0) % 12/17/19 12/17/19 12/17/19 Range/Units 06:24 06:24 07:17 RBC (4.30-5.90) m/uL Hgb (13.0-17.5) gm/dL Hct (39.0-53.0) % Lymphocytes # (1.0-4.8) k/uL Sodium 133 L (135-145) mmol/L BUN/Creatinine Ratio 25.71 H (12.00-20.00) Ratio Glucose 171 H (70-110) mg/dL POC Glucose (mg/dL) 165 H (75-99) mg/dL Hemoglobin A1c 6.8 H (4.0-6.0) % 12/17/19 Range/Units 11:40 RBC (4.30-5.90) m/uL Hgb (13.0-17.5) gm/dL Hct (39.0-53.0) % Lymphocytes # (1.0-4.8) k/uL Sodium (135-145) mmol/L BUN/Creatinine Ratio (12.00-20.00) Ratio Glucose (70-110) mg/dL POC Glucose (mg/dL) 205 H (75-99) mg/dL Hemoglobin A1c (4.0-6.0) % Microbiology - Last 24 Hours (Table) 12/15/19 13:40 Gram Stain - Preliminary Aspirate Body Fluid Culture - Preliminary Assessment and Plan Assessment: Left patella fracture Right knee pseudogout Plan: - Continue with knee immobilizer for left lower extremity, toe-touch weight wearing. Up with assistance, up with a walker. - Weight bear as tolerated on right knee. Prednisone 60mg QD for 3-5 days added per internal medicine. - Physical therapy for gait and balance training. - Anticipate discharge to rehab.
--- NOTE | 2019-12-17 17:13 | P.PN ---
Subjective Patient is doing well today. He does not have any complaint this morning. Objective - Vital Signs Vital signs: Vital Signs Temp 98.0 F 12/17/19 13:00 Pulse 88 12/17/19 13:00 Resp 20 12/17/19 13:00 BP 167/83 12/17/19 13:00 Pulse Ox 96 12/17/19 13:00 Intake & Output 12/16/19 12/17/19 12/17/19 18:59 06:59 18:59 Intake Total 1780 Output Total 400 Balance 1380 Intake: Intake, IV Titration 600 Amount Sodium Chloride 0.9% 1, 600 000 ml @ 50 mls/hr IV . Q20H [facility] Rx#:[id number] Oral 1180 Output: Urine 400 Other: Voiding Method Urinal Urinal Urinal Diaper Diaper Diaper Incontinent Incontinent Incontinent # Voids 3 # Bowel Movements 3 1 - Exam General: The patient is awake and alert, in no distress Eye: there is left periorbital bruising Neck: The neck is supple, there is no JVD. Cardiovascular: Normal S1-S2, no S3-S4, no murmurs. Respiratory: Lungs clear to auscultation bilaterally Gastrointestinal: Abdomen is soft, nontender Musculoskeletal: There is no pedal edema. Neurological:. Speech is normal. Skin: Skin is warm and dry - Labs CBC & Chem 7: 12/17/19 06:24 12/17/19 06:24 Labs: Abnormal Lab Results - Last 24 Hours (Table) 12/16/19 12/16/19 12/17/19 Range/Units 17:19 19:46 06:24 RBC 3.54 L (4.30-5.90) m/uL Hgb 10.2 L (13.0-17.5) gm/dL Hct 32.2 L (39.0-53.0) % Lymphocytes # 0.3 L (1.0-4.8) k/uL Sodium (135-145) mmol/L BUN/Creatinine Ratio (12.00-20.00) Ratio Glucose (70-110) mg/dL POC Glucose (mg/dL) 152 H 201 H (75-99) mg/dL Hemoglobin A1c (4.0-6.0) % 12/17/19 12/17/19 12/17/19 Range/Units 06:24 06:24 07:17 RBC (4.30-5.90) m/uL Hgb (13.0-17.5) gm/dL Hct (39.0-53.0) % Lymphocytes # (1.0-4.8) k/uL Sodium 133 L (135-145) mmol/L BUN/Creatinine Ratio 25.71 H (12.00-20.00) Ratio Glucose 171 H (70-110) mg/dL POC Glucose (mg/dL) 165 H (75-99) mg/dL Hemoglobin A1c 6.8 H (4.0-6.0) % 12/17/19 Range/Units 11:40 RBC (4.30-5.90) m/uL Hgb (13.0-17.5) gm/dL Hct (39.0-53.0) % Lymphocytes # (1.0-4.8) k/uL Sodium (135-145) mmol/L BUN/Creatinine Ratio (12.00-20.00) Ratio Glucose (70-110) mg/dL POC Glucose (mg/dL) 205 H (75-99) mg/dL Hemoglobin A1c (4.0-6.0) % Microbiology - Last 24 Hours (Table) 12/15/19 13:40 Gram Stain - Preliminary Aspirate Body Fluid Culture - Preliminary Assessment and Plan Assessment: This is a 79-year-old male who was directly admitted to the hospital from the orthopedic office with worsening knee pain and inability to ambulate. Glucose as well as his medical problems. 1. Left patellar fracture with large hemarthrosis, currently large knee immobilizer. Orthopedic surgery consulted. Status post arthrocentesis showing evidence of pseudogout crystals. Patient denies any history of joint swelling or pain. This may be incidental findings. We will finish short course of prednisone for 3-5 days. 2. Essential hypertension, blood pressure well controlled. 3. Physical debility with gait imbalance: PT/OT consulted. Patient may benefit from rehab 4. Recurrent falls as reported per with most recent one couple of days ago. Extensive imaging in the ER was reviewed by me. Questionable hemarthrosis involving the left knee, left frontal scalp hematoma, and left periorbital bruising 5. Type 2 diabetes: Hold metformin and continue sliding scale insulin 6. History of aortic valve stenosis status post TAVR last year 7. DVT prophylaxis with SCD On presentation, I had a prolonged conversation with the patient and his regarding risk and benefits of antiplatelet. His informs me that patient was taken off of Plavix by his information services assistant that his PCP put him back on Plavix as she suspected that he may have it TIA based on clinical suspicion. Patient had a left heart catheterization showing nonobstructive coronary artery disease not too long ago. He denies having any cardiac stent in the past. I advised to discontinue Plavix permanently and hold aspirin for the next couple of days.
[2019-12-17 17:30] LABS: Glucose,Whole Blood 276 mg/dL (75-99)
[2019-12-17 20:01] LABS: Glucose,Whole Blood 307 mg/dL (75-99)
[2019-12-17] MEDS: MELATONIN 3 MG TABLET PO PRN (20:56)
[2019-12-17 21:51] LABS: Appearance,Urine Clear (Clear); Bilirubin,Urine Negative (Negative); Blood,Urine Negative (Negative); Color,Urine Yellow; Glucose,Urine (UA) 4+ (Negative); Ketones,Urine Negative (Negative); Leukocyte Esterase,Urine Negative (Negative); Nitrite,Urine Negative (Negative); Protein,Urine Trace (Negative); Specific Gravity,Urine 1.022 (1.001-1.035); Urobilinogen,Urine <2.0 mg/dL (<2.0)
[2019-12-18 05:48] LABS: Basophils % (A) 0 %; Eosinophils % (A) 0 %; HCT 31.6 % (39.0-53.0); HGB 10.6 gm/dL (13.0-17.5); Lymphocytes # (A) 0.3 k/uL (1.0-4.8); Lymphocytes % (A) 5 %; MCH 28.9 pg (25.0-35.0); MCHC 33.4 g/dL (31.0-37.0); MCV 86.6 fL (80.0-100.0); Mean Platelet Volume 6.8; Monocytes # (A) 0.6 k/uL (0-1.0); Monocytes % (A) 8 %; Neutrophils # (A) 6.1 k/uL (1.3-7.7); Neutrophils % (A) 85 %; Platelet Count 256 k/uL (150-450); RBC 3.65 m/uL (4.30-5.90); RDW 13.3 % (11.5-15.5); WBC 7.1 k/uL (3.8-10.6)
[2019-12-18 07:13] LABS: Glucose,Whole Blood 174 mg/dL (75-99)
[2019-12-18] MEDS: hydrALAZINE HCL 50 MG TAB PO SCH (08:12)
[2019-12-18] MEDS: predniSONE 20 MG TAB PO SCH (08:12)
[2019-12-18] MEDS: METOPROLOL TARTRATE 50 MG TAB PO SCH (08:12)
[2019-12-18] MEDS: PANTOPRAZOLE 40 MG TABLET PO SCH (08:13)
[2019-12-18] MEDS: INSULIN ASPART (NovoLOG) 100 UNIT/ML VIAL SQ SCH ×2 (08:13→12:08)
[2019-12-18] MEDS: DOXAZOSIN 2 MG TAB PO SCH (08:23)
[2019-12-18 11:04] LABS: Glucose,Whole Blood 179 mg/dL (75-99)
--- NOTE | 2019-12-18 11:59 | P.DS ---
Providers Date of admission: 12/14/19 17:12 Expected date of discharge: 12/18/19 Attending physician: Kaci Sue Consults: 12/14/19 17:52 Consult Physician Routine Consulting Provider: David Taylor Consult Reason/Comments: Patellar fracture Do you want consulting provider notified?: Yes Primary care physician: [facility] Course: This is a 79-year-old male who was directly admitted to the hospital from the orthopedic office with worsening knee pain and inability to ambulate. Below is a list of his medical problems. 1. Left patellar fracture with large hemarthrosis, currently large knee immobilizer. Orthopedic surgery consulted. Status post arthrocentesis showing evidence of pseudogout crystals. Patient denies any history of joint swelling or pain. This may be incidental findings. I started the patient on prednisone 60 mg daily that he was having worsening confusion so this was discontinued. Plan to follow-up with orthopedic in the office on . 2. Essential hypertension, blood pressure well controlled. Hydrochlorothiazide discontinued on presentation secondary to hyponatremia 3. Physical debility with gait imbalance: PT/OT consulted. Patient will be discharged to subacute rehab facility in [place], [place] 4. Recurrent falls as reported per with most recent one couple of days ago. Extensive imaging in the ER was reviewed by me. hemarthrosis involving the left knee, left frontal scalp hematoma, and left periorbital bruising 5. Type 2 diabetes: Hold metformin and continue sliding scale insulin 6. History of aortic valve stenosis status post TAVR last year Discontinue Plavix. Continue aspirin. Patient will be discharged in a stable condition. For further details about this hospitalization please refer to the electronic chart. Time spent on discharge > 30 minutes including counseling and coordination of Patient Condition at Discharge: Stable Plan - Discharge Summary New Discharge Prescriptions: New Ferrous Sulfate [Iron (65 MG Elemental)] 325 mg PO DAILY #30 tab Continue hydrALAZINE HCL [Apresoline] 50 mg PO Q8H Terazosin [Hytrin] 2 mg PO BID Aspirin 81 mg PO HS Pantoprazole Sodium [Protonix] 40 mg PO DAILY Metoprolol Tartrate [Lopressor] 50 mg PO BID Hydrocodone/Acetaminophen [[place] 5-325] 1 tab PO Q4HR PRN #18 tab PRN Reason: Pain Discontinued Potassium Chloride [Klor-Con 10] 10 meq PO DAILY Hydrochlorothiazide [hydroCHLOROthiazide] 12.5 mg PO DAILY Clopidogrel [Plavix] 75 mg PO DAILY [place]lee Iron Plus C Complex 2 tab PO Q48H [place] Iron Plus C Complex 1 tab PO Q48H Discharge Medication List Aspirin 81 mg PO HS 04/20/18 [History] Terazosin [Hytrin] 2 mg PO BID 04/20/18 [History] hydrALAZINE HCL [Apresoline] 50 mg PO Q8H 04/20/18 [History] Hydrocodone/Acetaminophen [[place] 5-325] 1 tab PO Q4HR PRN #18 tab 12/13/19 [Rx] Metoprolol Tartrate [Lopressor] 50 mg PO BID 12/13/19 [History] Pantoprazole Sodium [Protonix] 40 mg PO DAILY 12/13/19 [History] Ferrous Sulfate [Iron (65 MG Elemental)] 325 mg PO DAILY #30 tab 12/18/19 [Rx] Patient Instructions/Handouts: Type 2 Diabetes in Adults: New Diagnosis (ED) Discharge Disposition: TRANSFER TO SNF/ECF
[2019-12-18 12:01] VITALS: BP 158/82; PULSE 90; RESP 17; TEMP 97.6
[2019-12-18 14:20] LABS: African American GFR (CKD) 102.6 (60.0-200.0); Anion Gap 10.3 mmol/L (4.00-12.00); BUN/Creat Ratio 24.29 Ratio (12.00-20.00); Carbon Dioxide 25.7 mmol/L (21.6-31.8); Non-African American GFR(CKD) 88.5 (60.0-200.0); Potassium 3.7 mmol/L (3.5-5.5)
== END 2019-12-18 15:20 | DRG 563 ==
LOC: 6NMEDSUR 17:12
PROVIDERS: ADMIT Internal Medicine; ATTEND Internal Medicine
PROC: 0S9D3ZX Drainage of Left Knee Joint, Percutaneous Approach, Diagnostic (ICD-10-PCS; principal; 2019-12-15)
DX: S82.002A Unspecified fracture of left patella, initial encounter for closed fracture (principal); E87.1 Hypo-osmolality and hyponatremia; M25.00 Hemarthrosis, unspecified joint; S00.03XA Contusion of scalp, initial encounter; S00.12XA Contusion of left eyelid and periocular area, initial encounter; W19.XXXA Unspecified fall, initial encounter; E11.9 Type 2 diabetes mellitus without complications; I10 Essential (primary) hypertension; M11.262 Other chondrocalcinosis, left knee; M17.0 Bilateral primary osteoarthritis of knee; Z20.828 Contact with and (suspected) exposure to other viral communicable diseases; I25.10 Atherosclerotic heart disease of native coronary artery without angina pectoris; R53.81 Other malaise; R29.6 Repeated falls; I35.0 Nonrheumatic aortic (valve) stenosis; Z95.2 Presence of prosthetic heart valve; Z92.3 Personal history of irradiation; Z90.79 Acquired absence of other genital organ(s); Z85.828 Personal history of other malignant neoplasm of skin; Z85.46 Personal history of malignant neoplasm of prostate; Z79.899 Other long term (current) drug therapy; Z79.82 Long term (current) use of aspirin; Z79.4 Long term (current) use of insulin; Z79.02 Long term (current) use of antithrombotics/antiplatelets; Z90.49 Acquired absence of other specified parts of digestive tract; Z98.890 Other specified postprocedural states; Z88.2 Allergy status to sulfonamides
CPT/HCPCS: 80048; 81003; 83036; 85025; 87070; 87205; 87635; 89050; 89060